=== PATIENT | male | born 1965 | race Caucasian/White ===

== ENCOUNTER 2021-05-15 18:59 | Emergency (ER) | payer OTHER ==
[2021-05-15 19:52] LABS: HEMOGLOBIN 15.4 gm/dl (14.0-17.5); RED BLOOD COUNT 5.3 M/UL (4.20-5.50); WHITE BLOOD COUNT 14.2 K/UL (4.5-11.0)
[2021-05-15 20:14] LABS: BUN/CREATININE RATIO 22 (0-10)
[2021-05-15] MEDS ORDERED: ZOFRAN ODT 4 MG4 MG PO (23:23)
[2021-05-15] MEDS ORDERED: LODINE CAP 300300 MG PO (23:23)
[2021-05-15] MEDS ORDERED: FLOMAX 0.4 MG0.4 MG PO (23:23)
[2021-05-15] MEDS ORDERED: HYDROCODON-ACE1 EAC4 PO (23:27)
== END 2021-05-15 23:32 | disposition home or self-care (01) ==
LOC: ER1 18:59
PROVIDERS: Physician Assistant
DX: N13.2 Hydronephrosis with renal and ureteral calculous obstruction (principal); R07.9 Chest pain, unspecified; R10.9 Unspecified abdominal pain; Z88.5 Allergy status to narcotic agent
CPT/HCPCS: 71045; 80053; 81001; 82550; 82553; 83690; 84484; 85025; 87086; 93005; 99284; Q9967